=== PATIENT | female | born 1960 | race African-American/Black ===

== ENCOUNTER 2023-08-25 21:23 | Emergency (ER) | payer OTHER, SELFPAY ==
--- OUTSIDE RECORDS SUMMARY | 2023-08-25 21:29 | XMS REPORT | Continuity of Care Document ---
Author Name Unknown Address [address] [facility] [address] [place] [address] [facility] Address [address] [facility] [place] [address] Care Team Providers Care Business Education Professor Name Role Phone ABIGAIL PHILLIP Primary Care Physician Unavaila Abigail Beatty Attending Clinician Unavailable Sravanthi Meléndez Attending Clinician Unavailable TEQUILA CALDWELL Attending Clinician Unavailable TEQUILA CALDWELL Attending Clinician Unavailable GINGER MONTENEGRO Attending Clinician Unavailabl e Lab, Ang - Db Attending Clinician Unavailable Doctor Unassigned, [place] Attending Clinician U navailAntonietta Long MA Attending Clinician Unavailabl Mahsa Yan Attending Clinician Unavailable Celia De La Rosa RN Attending Clinician Unav ailEugenia Garrison MD Attending Clinician EUGENIA ALVARES Attending Clinician Unavailable SUDHEER NAIDU Attending Clinician Unavailable Bin Aguero MD Attending Clinician [phone] BIN AGUERO Attending Clinician Unavailable TEQUILA CALDWELL Admitting Clinician Unavailable Payers Payer Name Policy Type Policy Number Effective Date Expirati on Date Source HIM [facility] [id number] 2022 [id number] 2019 00:[facility] MEDICAID [place] [id number] 2018 00:00:00 [facility] MEDICAID [place] [id number] 2018 00:00:00 [facility] MEDICAID [place] [id number] 2018 00:00:00 [facility] MEDICAID [place] [id number] 2018 00:00:00 [facility] Problems Condition Name Condition Details Condition Category Status Onset Date Resolution Date Last Treatment Date Treating Clinician Comments Source Obesity (BMI 30-39.9) Obesity (BMI 30-39.9) Disease Active 2021-03 00:00: 00 [facility] hyperthyro idism [facility] hyper[facility]ro idism Disease Active 12-23 00:00: 00 [facility] Thyroid nodule Thyroid nodule Disease Active 12-23 00:00: 00 [facility] Mass of left forearm Mass of left forearm Disease Active 2018-03 00:00: 00 Overview: Formattin g of this note might be different from the original. Added automatic ally from request for surgery [id number] [facility] Mass of anterior abdominal wall Mass of anterior abdominal wall Disease Active 2018-03 00:00: 00 Overview: Formattin g of this note might be different from the original. Added automatic ally from request for surgery [id number] [facility] [id number] Alcohol abuse Problem [facility] Cataract Cataract Problem [facility] [id number] Essential hypertensi on Problem [facility] [id number] Other chronic pain Problem [facility] [id number] Uncontroll ed type 2 diabetes mellitus with hyperglyce hari Problem [facility] Vitamin D deficiency Vitamin D deficiency Problem [facility] [id number] Lymphocyto sis Problem [facility] [id number] Hyperthyro idism Problem [facility] Allergies, Adverse Reactions, Alerts Allergy Name Allergy Type Status Severity Reaction(s) Onset Date Inactive Date Treating Clinician Comments Source NO KNOWN ALLERGIE S Drug Class Active [facility] Social History Social Habit Start Date Stop Date Quantity Comments Source History SDOH Alcohol Comment [place] [facility] Gender identity [facility] of Tobacco Use Current Smoker [facility] Sex Assigned At [facility] Exposure to SARS-CoV-2 (event) 2022-06-21 00:00:00 2022-07-01 08:41:00 Not sure [facility] Alcohol intake 2020-03-27 00:00:00 2020-03-27 00:00:00 .29 /d [facility] History of Social function 2019-11-03 00:00:00 2019-11-03 00:00:00 [facility] History SDOH Alcohol Frequency 2019-03-05 00:00:00 2019-03-05 00:00:00 2 [facility] History SDOH Alcohol Std Drinks 2019-03-05 00:00:00 2019-03-05 00:00:00 2 [facility] History SDOH Alcohol Binge 2019-03-05 00:00:00 2019-03-05 00:00:00 1 [facility] Cigarettes smoked current (pack per day) - Reported 2019-03-05 00:00:00 2019-03-05 00:00:00 [facility] Tobacco use and exposure 2019-03-05 00:00:00 2019-03-05 00:00:00 Smokeless tobacco non-user [facility] Smoking Status Start Date Stop Date Source Current Smoker 2023-08-01 00:00:00 [facility] Former Smoker 2023-04-03 00:00:00 2023-04-03 00:00:00 [facility] Medications Ordered Medication Name Filled Medication Name Start Date Stop Date Current Medication? Ordering Clinician Indication Dosage Frequency Signature (SIG) Comments Components Source Amoxicillin -Pot Clavulanate 875-125 MG Amoxicillin -Pot Clavulanate 875-125 MG 2023-0 -03 00:00: 00 No 1{table t} BID Amoxicilli n-Pot Clavulanat e 875-125 MG cloNIDine HCl 0.1 MG cloNIDine HCl 0.1 MG 07-31 00:00: 00 No BID cloNIDine HCl 0.1 MG Ozempic (1 MG/DOSE) 4 MG/3ML Ozempic (1 MG/DOSE) 4 MG/3ML 07-02 00:00: 00 No Ozempic (1 MG/DOSE) 4 MG/3ML Trulicity 1.5 MG/0.5ML Trulicity 1.5 MG/0.5ML 2022-03 00:00: 00 No Trulicity 1.5 MG/0.5ML Trulicity 1.5 MG/0.5ML Trulicity 1.5 MG/0.5ML 2022-03 00:00: 00 No Trulicity 1.5 MG/0.5ML Trulicity 1.5 MG/0.5ML Trulicity 1.5 MG/0.5ML 2022-03 00:00: 00 No Trulicity 1.5 MG/0.5ML Trulicity 1.5 MG/0.5ML Trulicity 1.5 MG/0.5ML 2022-03 00:00: 00 No Trulicity 1.5 MG/0.5ML Trulicity 1.5 MG/0.5ML Trulicity 1.5 MG/0.5ML 2022-03 00:00: 00 No Trulicity 1.5 MG/0.5ML Trulicity 1.5 MG/0.5ML Trulicity 1.5 MG/0.5ML 2022-03 00:00: 00 No Trulicity 1.5 MG/0.5ML Trulicity 1.5 MG/0.5ML Trulicity 1.5 MG/0.5ML 2022-03 00:00: 00 No Trulicity 1.5 MG/0.5ML Trulicity 1.5 MG/0.5ML Trulicity 1.5 MG/0.5ML 2022-03 00:00: 00 No Trulicity 1.5 MG/0.5ML Trulicity 1.5 MG/0.5ML Trulicity 1.5 MG/0.5ML 2022-03 00:00: 00 No Trulicity 1.5 MG/0.5ML Trulicity 1.5 MG/0.5ML Trulicity 1.5 MG/0.5ML 2022-03 00:00: 00 No Trulicity 1.5 MG/0.5ML Trulicity 1.5 MG/0.5ML Trulicity 1.5 MG/0.5ML 2022-03 00:00: 00 No Trulicity 1.5 MG/0.5ML Trulicity 1.5 MG/0.5ML Trulicity 1.5 MG/0.5ML 2022-03 00:00: 00 No Trulicity 1.5 MG/0.5ML Trulicity 1.5 MG/0.5ML Trulicity 1.5 MG/0.5ML 2022-03 00:00: 00 No Trulicity 1.5 MG/0.5ML methIMAzole 5 mg tablet 07-01 00:00: 00 Yes [id number] 7.5mg Take 1.5 tablets by mouth in the morning. [facility] methIMAzole 5 mg tablet 2021-03 2-14 00:00: 00 07-01 00:00 :00 No [id number] 7.5mg Take 1.5 tablets by mouth in the morning. [facility] lidocaine 1% (PF) (XYLOCAINE) injection 2021-03 17:56: 28 01-28 17:56 :28 No PRN, Starting on Fri01/28/22 at 1256, Until Discontinu ed, Routine [facility] methIMAzole 5 mg tablet 2021-03 0-12 00:00: 00 03-13 00:00 :00 No [id number] 5mg Take 1 tablet by mouth in the morning. [facility] methIMAzole 5 mg tablet 4-15 00:00: 00 01-09 00:00 :00 No [id number] 2.5mg Take 0.5 tablets by mouth daily. [facility] methIMAzole 5 mg tablet 07-12 00:00: 00 07-13 00:00 :00 No [id number] 2.5mg Take 0.5 tablets by mouth daily. [facility] Penicillin V Potassium 500 MG Penicillin V Potassium 500 MG - 00:00: 00 07-12 00:00 :00 No 1{table t} BID Penicillin V Potassium 500 MG sodium iodide I 123 oral capsule 200 microcurie 06-28 16:30: 00 06-28 15:22 :00 No [id number] 200uCi 200 microcurie , Oral, ONCE, 1 dose, On [facility] 06/28/21 at 1130, Routine [facility] Vitamin D3 250 MCG (07242 UT) Vitamin D3 250 MCG (26671 UT) 10-19 00:00: 00 01-17 00:00 :00 No 1{capsu le} QD Vitamin D3 250 MCG (26317 UT) Vitamin D3 250 MCG (03529 UT) Vitamin D3 250 MCG (99990 UT) 10-19 00:00: 00 01-17 00:00 :00 No 1{capsu le} QD Vitamin D3 250 MCG (55430 UT) azithromyci n 250 mg tablet 2019-03 00:00: 00 Yes [id number] 250mg Take 1 tablet by mouth daily. Take 500 mg day 1, then 250 mg days 2 to 5. [facility] benzonatate (TESSALON PERLES) 100 mg capsule 2019-03 00:00: 00 Yes [id number] 100mg Take 1 capsule by mouth 3 (three) times daily as needed for Cough. [facility] Vitamin D (Ergocalcif dominick) Vitamin D (Ergocalcif dominick) 12-12 00:00: 00 03-12 00:00 :00 No Sravanthi Millender 1 capsule [facility] Amlodipine Besylate Amlodipine Besylate 04-13 00:00: 00 Yes Sravanthi Millender 1 tablet [facility] aspirin 325 mg tablet 2018-03 14:20: 01 Yes 325mg Take 325 mg by mouth daily. [facility] traMADol 50 mg tablet 2018-03 00:00: 00 Yes [id number] 50mg Take 1 tablet by mouth every 6 (six) hours as needed for Pain (scale 4-6) or Pain (scale 7-10). [facility] acetaminoph en 500 mg tablet 2018-03 00:00: 00 Yes [id number] 500mg Take 1 tablet by mouth every 6 (six) hours as needed for Pain. [facility] ibuprofen 600 mg tablet 2018-03 00:00: 00 Yes [id number] 600mg Take 1 tablet by mouth every 6 (six) hours as needed for Pain (scale 4-6). [facility] Blood Glucose Test Strip Blood Glucose Test Strip 2018-03 00:00: 00 Yes Sravanthi Millender as directed (DISPENSE BLOOD GLUCOSE TEST STRIPS FORMULARY TO INSURANCE) [facility] Lancets Lancets 2018-03 00:00: 00 Yes Sravanthi Millender as directed (dispense lancets formulary to insurance) [facility] Blood Glucose Monitor Blood Glucose Monitor 2018-03 00:00: 00 Yes Sravanthi Millender as directed (DISPENSE BLOOD GLUCOSE MONITOR FORMULARY TO INSURANCE) [facility] Aspirin Adult 81 MG Aspirin Adult 81 MG 2018-03 015 00:00: 00 No QD Aspirin Adult 81 MG Lancets - Lancets - 2018-03 015 00:00: 00 No Lancets - Lancets - Lancets - 2018-0315 00:00: 00 No Lancets - Metformin HCl Metformin HCl Yes Sravanthi Millender 1 tablet with a meal [facility] Lisinopril Lisinopril Yes Sravanthi Millender 1 tablet [facility] Meloxicam Meloxicam Yes Sravanthi Millender 1 tablet [facility] Glimepiride Glimepiride Yes Sravanthi Millender 1 tablet [facility] Aspirin Adult Aspirin Adult Yes Sravanthi Millender (otc)1 tablet [facility] Lisinopril 30 MG Lisinopril 30 MG No 1{table t} QD Lisinopril 30 MG metFORMIN HCl 500 MG metFORMIN HCl 500 MG No 1{table t_with_ a_meal} BID metFORMIN HCl 500 MG Glimepiride 2 MG Glimepiride 2 MG No 1{table t} BID Glimepirid e 2 MG amLODIPine Besylate 10 MG amLODIPine Besylate 10 MG No 1{table t} QD amLODIPine Besylate 10 MG Aspirin Adult 81 MG Aspirin Adult 81 MG No QD Aspirin Adult 81 MG Glimepiride 2 MG Glimepiride 2 MG No 1{table t} BID Glimepirid e 2 MG Lisinopril 30 MG Lisinopril 30 MG No 1{table t} QD Lisinopril 30 MG metFORMIN HCl 500 MG metFORMIN HCl 500 MG No 1{table t_with_ a_meal} BID metFORMIN HCl 500 MG amLODIPine Besylate 10 MG amLODIPine Besylate 10 MG No 1{table t} amLODIPine Besylate 10 MG metFORMIN HCl 1000 MG metFORMIN HCl 1000 MG No 1{table t_with_ a_meal} BID metFORMIN HCl 1000 MG amLODIPine Besylate 10 MG amLODIPine Besylate 10 MG No 1{table t} amLODIPine Besylate 10 MG Lisinopril 30 MG Lisinopril 30 MG No Lisinopril 30 MG Glimepiride 2 MG Glimepiride 2 MG No 1{table t} BID Glimepirid e 2 MG Aspirin Adult 81 MG Aspirin Adult 81 MG No QD Aspirin Adult 81 MG amLODIPine Besylate 10 MG amLODIPine Besylate 10 MG No 1{table t} QD amLODIPine Besylate 10 MG metFORMIN HCl 1000 MG metFORMIN HCl 1000 MG No 1{table t_with_ a_meal} BID metFORMIN HCl 1000 MG methIMAzole 5 MG methIMAzole 5 MG No 1{table t} QD methIMAzol e 5 MG [facility] Blood Glucose Monito w/Device [facility] Blood Glucose Monito w/Device No [facility] Blood Glucose Monito w/Device Aspirin Adult 81 MG Aspirin Adult 81 MG No QD Aspirin Adult 81 MG Glimepiride 2 MG Glimepiride 2 MG No 1{table t_with_ breakfa st_or_t he_firs t_main_ meal_of _the_da y} Glimepirid e 2 MG Lisinopril 30 MG Lisinopril 30 MG No Lisinopril 30 MG amLODIPine Besylate 10 MG amLODIPine Besylate 10 MG No 1{table t} QD amLODIPine Besylate 10 MG metFORMIN HCl 1000 MG metFORMIN HCl 1000 MG No 1{table t_with_ a_meal} BID metFORMIN HCl 1000 MG methIMAzole 5 MG methIMAzole 5 MG No 1{table t} QD methIMAzol e 5 MG [facility] Blood Glucose Monito w/Device [facility] Blood Glucose Monito w/Device No [facility] Blood Glucose Monito w/Device Aspirin Adult 81 MG Aspirin Adult 81 MG No QD Aspirin Adult 81 MG Glimepiride 2 MG Glimepiride 2 MG No 1{table t_with_ breakfa st_or_t he_firs t_main_ meal_of _the_da y} Glimepirid e 2 MG Lisinopril 30 MG Lisinopril 30 MG No Lisinopril 30 MG amLODIPine Besylate 10 MG amLODIPine Besylate 10 MG No 1{table t} QD amLODIPine Besylate 10 MG Aspirin Adult 81 MG Aspirin Adult 81 MG No QD Aspirin Adult 81 MG methIMAzole 5 MG methIMAzole 5 MG No 1{table t} QD methIMAzol e 5 MG metFORMIN HCl 500 MG metFORMIN HCl 500 MG No metFORMIN HCl 500 MG Glimepiride 2 MG Glimepiride 2 MG No 1{table t_with_ breakfa st_or_t he_firs t_main_ meal_of _the_da y} Glimepirid e 2 MG Lisinopril 30 MG Lisinopril 30 MG No Lisinopril 30 MG [facility] Blood Glucose Monito w/Device [facility] Blood Glucose Monito w/Device No [facility] Blood Glucose Monito w/Device amLODIPine Besylate 10 MG amLODIPine Besylate 10 MG No 1{table t} QD amLODIPine Besylate 10 MG Aspirin Adult 81 MG Aspirin Adult 81 MG No QD Aspirin Adult 81 MG methIMAzole 5 MG methIMAzole 5 MG No 1{table t} QD methIMAzol e 5 MG metFORMIN HCl 500 MG metFORMIN HCl 500 MG No metFORMIN HCl 500 MG Glimepiride 2 MG Glimepiride 2 MG No 1{table t_with_ breakfa st_or_t he_firs t_main_ meal_of _the_da y} Glimepirid e 2 MG Lisinopril 30 MG Lisinopril 30 MG No Lisinopril 30 MG [facility] Blood Glucose Monito w/Device [facility] Blood Glucose Monito w/Device No [facility] Blood Glucose Monito w/Device amLODIPine Besylate 10 MG amLODIPine Besylate 10 MG No 1{table t} QD amLODIPine Besylate 10 MG Aspirin Adult 81 MG Aspirin Adult 81 MG No QD Aspirin Adult 81 MG methIMAzole 5 MG methIMAzole 5 MG No 1{table t} QD methIMAzol e 5 MG metFORMIN HCl 500 MG metFORMIN HCl 500 MG No metFORMIN HCl 500 MG Glimepiride 2 MG Glimepiride 2 MG No 1{table t_with_ breakfa st_or_t he_firs t_main_ meal_of _the_da y} Glimepirid e 2 MG Lisinopril 30 MG Lisinopril 30 MG No Lisinopril 30 MG [facility] Blood Glucose Monito w/Device [facility] Blood Glucose Monito w/Device No [facility] Blood Glucose Monito w/Device amLODIPine Besylate 10 MG amLODIPine Besylate 10 MG No 1{table t} QD amLODIPine Besylate 10 MG Aspirin Adult 81 MG Aspirin Adult 81 MG No QD Aspirin Adult 81 MG methIMAzole 5 MG methIMAzole 5 MG No 1{table t} QD methIMAzol e 5 MG metFORMIN HCl 500 MG metFORMIN HCl 500 MG No metFORMIN HCl 500 MG Glimepiride 2 MG Glimepiride 2 MG No 1{table t_with_ breakfa st_or_t he_firs t_main_ meal_of _the_da y} Glimepirid e 2 MG Lisinopril 30 MG Lisinopril 30 MG No Lisinopril 30 MG [facility] Blood Glucose Monito w/Device [facility] Blood Glucose Monito w/Device No [facility] Blood Glucose Monito w/Device amLODIPine Besylate 10 MG amLODIPine Besylate 10 MG No 1{table t} QD amLODIPine Besylate 10 MG Aspirin Adult 81 MG Aspirin Adult 81 MG No QD Aspirin Adult 81 MG methIMAzole 5 MG methIMAzole 5 MG No 1{table t} QD methIMAzol e 5 MG metFORMIN HCl 500 MG metFORMIN HCl 500 MG No metFORMIN HCl 500 MG Glimepiride 2 MG Glimepiride 2 MG No 1{table t_with_ breakfa st_or_t he_firs t_main_ meal_of _the_da y} Glimepirid e 2 MG Lisinopril 30 MG Lisinopril 30 MG No Lisinopril 30 MG [facility] Blood Glucose Monito w/Device [facility] Blood Glucose Monito w/Device No [facility] Blood Glucose Monito w/Device Glimepiride 2 MG Glimepiride 2 MG No 1{table t_with_ break st_or_t he_firs t_main_ meal_of _the_da y} Glimepirid e 2 MG Lisinopril 30 MG Lisinopril 30 MG No Lisinopril 30 MG Aspirin Adult 81 MG Aspirin Adult 81 MG No QD Aspirin Adult 81 MG amLODIPine Besylate 10 MG amLODIPine Besylate 10 MG No amLODIPine Besylate 10 MG metFORMIN HCl 500 MG metFORMIN HCl 500 MG No metFORMIN HCl 500 MG [facility] Blood Glucose Monito w/Device [facility] Blood Glucose Monito w/Device No [facility] Blood Glucose [place] w/Device methIMAzole 5 MG methIMAzole 5 MG No 1{table t} QD methIMAzol e 5 MG Glimepiride 2 MG Glimepiride 2 MG No 1{table t_with_ break st_or_t he_firs t_main_ meal_of _theda y} Glimepirid e 2 MG Lisinopril 30 MG Lisinopril 30 MG No Lisinopril 30 MG Aspirin Adult 81 MG Aspirin Adult 81 MG No QD Aspirin Adult 81 MG amLODIPine Besylate 10 MG amLODIPine Besylate 10 MG No amLODIPine Besylate 10 MG metFORMIN HCl 500 MG metFORMIN HCl 500 MG No metFORMIN HCl 500 MG [facility] Blood Glucose Monito w/Device [facility] Blood Glucose Monito w/Device No [facility] Blood Glucose Monito w/Device methIMAzole 5 MG methIMAzole 5 MG No 1{table t} QD methIMAzol e 5 MG Glimepiride 2 MG Glimepiride 2 MG No 1{table t_with_ breakfa st_or_t he_firs t_main_ meal_of _the_da y} Glimepirid e 2 MG Lisinopril 30 MG Lisinopril 30 MG No Lisinopril 30 MG Aspirin Adult 81 MG Aspirin Adult 81 MG No QD Aspirin Adult 81 MG amLODIPine Besylate 10 MG amLODIPine Besylate 10 MG No amLODIPine Besylate 10 MG metFORMIN HCl 500 MG metFORMIN HCl 500 MG No metFORMIN HCl 500 MG [facility] Blood Glucose Monito w/Device [facility] Blood Glucose Monito w/Device No [facility] Blood Glucose Monito w/Device methIMAzole 5 MG methIMAzole 5 MG No 1{table t} QD methIMAzol e 5 MG Glimepiride 2 MG Glimepiride 2 MG No 1{table t_with_ breakfa st_or_t he_firs t_main_ meal_of _the_da y} Glimepirid e 2 MG Lisinopril 30 MG Lisinopril 30 MG No Lisinopril 30 MG Aspirin Adult 81 MG Aspirin Adult 81 MG No QD Aspirin Adult 81 MG amLODIPine Besylate 10 MG amLODIPine Besylate 10 MG No amLODIPine Besylate 10 MG metFORMIN HCl 500 MG metFORMIN HCl 500 MG No metFORMIN HCl 500 MG [facility] Blood Glucose Mon[place] w/Device [facility] Blood Glucose Monito w/Device No [facility] Blood Glucose Monito w/Device methIMAzole 5 MG methIMAzole 5 MG No 1{table t} QD methIMAzol e 5 MG Glimepiride 2 MG Glimepiride 2 MG No 1{table t_with_ breakfa st_or_t he_firs t_main_ meal_of _the_da y} Glimepirid e 2 MG Lisinopril 30 MG Lisinopril 30 MG No Lisinopril 30 MG Aspirin Adult 81 MG Aspirin Adult 81 MG No QD Aspirin Adult 81 MG amLODIPine Besylate 10 MG amLODIPine Besylate 10 MG No amLODIPine Besylate 10 MG metFORMIN HCl 500 MG metFORMIN HCl 500 MG No metFORMIN HCl 500 MG [facility] Blood Glucose Mon[place] w/Device [facility] Blood Glucose Monito w/Device No [facility] Blood Glucose [place] w/Device methIMAzole 5 MG methIMAzole 5 MG No 1{table t} QD methIMAzol e 5 MG Glimepiride 2 MG Glimepiride 2 MG No 1{table t_with_ breakfa st_or_t he_firs t_main_ meal_of _the_da y} Glimepirid e 2 MG Lisinopril 30 MG Lisinopril 30 MG No Lisinopril 30 MG Aspirin Adult 81 MG Aspirin Adult 81 MG No QD Aspirin Adult 81 MG amLODIPine Besylate 10 MG amLODIPine Besylate 10 MG No amLODIPine Besylate 10 MG metFORMIN HCl 500 MG metFORMIN HCl 500 MG No metFORMIN HCl 500 MG [facility] Blood Glucose Mon[place] w/Device [facility] Blood Glucose Monito w/Device No [facility] Blood Glucose [place] w/Device methIMAzole 5 MG methIMAzole 5 MG No 1{table t} QD methIMAzol e 5 MG metFORMIN HCl 500 MG metFORMIN HCl 500 MG No 1{table t_with_ a_meal} BID metFORMIN HCl 500 MG Aspirin Adult 81 MG Aspirin Adult 81 MG No QD Aspirin Adult 81 MG Glimepiride 2 MG Glimepiride 2 MG No Glimepirid e 2 MG [facility] Blood Glucose Mon[place] w/Device [facility] Blood Glucose Monito w/Device No [facility] Blood Glucose Monito w/Device methIMAzole 5 MG methIMAzole 5 MG No 1{table t} QD methIMAzol e 5 MG Lisinopril 40 MG Lisinopril 40 MG No 1{table t} QD Lisinopril 40 MG amLODIPine Besylate 10 MG amLODIPine Besylate 10 MG No 1{table t} QD amLODIPine Besylate 10 MG Aspirin Adult 81 MG Aspirin Adult 81 MG No QD Aspirin Adult 81 MG metFORMIN HCl 500 MG metFORMIN HCl 500 MG No 1{table t_with_ a_meal} BID metFORMIN HCl 500 MG Lisinopril 30 MG Lisinopril 30 MG No 1{table t} QD Lisinopril 30 MG amLODIPine Besylate 10 MG amLODIPine Besylate 10 MG No 1{table t} amLODIPine Besylate 10 MG Glimepiride 2 MG Glimepiride 2 MG No 1{table t} BID Glimepirid e 2 MG Immunizations Ordered Immunization Name Filled Immunization Name Date Status Comments Source Moderna COVID-19 Vaccine Moderna COVID-19 Vaccine 2020-08-21 14:00:00 Completed [facility] Moderna COVID-19 Vaccine Moderna COVID-19 Vaccine 2020-08-21 14:00:00 Completed [facility] Moderna COVID-19 Vaccine Moderna COVID-19 Vaccine 2020-08-21 14:00:00 Completed [facility] Moderna COVID-19 Vaccine Moderna COVID-19 Vaccine 2020-08-21 14:00:00 Completed [facility] Moderna COVID-19 Vaccine Moderna COVID-19 Vaccine 2020-08-21 14:00:00 Completed [facility] Moderna COVID-19 Vaccine Moderna COVID-19 Vaccine 2020-08-21 14:00:00 Completed [facility] Moderna COVID-19 Vaccine Moderna COVID-19 Vaccine 2020-08-21 14:00:00 Completed [facility] Moderna COVID-19 Vaccine Moderna COVID-19 Vaccine 2020-08-21 14:00:00 Completed [facility] Moderna COVID-19 Vaccine Moderna COVID-19 Vaccine 2020-08-21 14:00:00 Completed [facility] Moderna COVID-19 Vaccine Moderna COVID-19 Vaccine 2020-08-21 14:00:00 Completed [facility] Moderna COVID-19 Vaccine Moderna COVID-19 Vaccine 2020-08-21 14:00:00 Completed [facility] SARS-COV-2 COVID-19 VACCINE - (MODERNA) 2020-08-21 00:00:00 Completed [facility] SARS-COV-2 COVID-19 VACCINE - (MODERNA) 2020-08-21 00:00:00 Completed [facility] SARS-COV-2 COVID-19 VACCINE - (MODERNA) 2020-08-21 00:00:00 Completed [facility] SARS-COV-2 COVID-19 VACCINE - (MODERNA) 2020-08-21 00:00:00 Completed [facility] SARS-COV-2 COVID-19 VACCINE - (MODERNA) 2020-08-21 00:00:00 Completed [facility] SARS-COV-2 COVID-19 VACCINE - (MODERNA) 2020-08-21 00:00:00 Completed [facility] SARS-COV-2 COVID-19 VACCINE - (MODERNA) 2020-08-21 00:00:00 Completed [facility] SARS-COV-2 COVID-19 VACCINE - (MODERNA) 2020-08-21 00:00:00 Completed [facility] SARS-COV-2 COVID-19 VACCINE - (MODERNA) 2020-08-21 00:00:00 Completed [facility] Moderna COVID-19 Vaccine Moderna COVID-19 Vaccine 2020-07-18 13:59:00 Completed [facility] Moderna COVID-19 Vaccine Moderna COVID-19 Vaccine 2020-07-18 13:59:00 Completed [facility] Moderna COVID-19 Vaccine Moderna COVID-19 Vaccine 2020-07-18 13:59:00 Completed [facility] Moderna COVID-19 Vaccine Moderna COVID-19 Vaccine 2020-07-18 13:59:00 Completed [facility] Moderna COVID-19 Vaccine Moderna COVID-19 Vaccine 2020-07-18 13:59:00 Completed [facility] Moderna COVID-19 Vaccine Moderna COVID-19 Vaccine 2020-07-18 13:59:00 Completed [facility] Moderna COVID-19 Vaccine Moderna COVID-19 Vaccine 2020-07-18 13:59:00 Completed [facility] Moderna COVID-19 Vaccine Moderna COVID-19 Vaccine 2020-07-18 13:59:00 Completed [facility] Moderna COVID-19 Vaccine Moderna COVID-19 Vaccine 2020-07-18 13:59:00 Completed [facility] Moderna COVID-19 Vaccine Moderna COVID-19 Vaccine 2020-07-18 13:59:00 Completed [facility] Moderna COVID-19 Vaccine Moderna COVID-19 Vaccine 2020-07-18 13:59:00 Completed [facility] SARS-COV-2 COVID-19 VACCINE - (MODERNA) 2020-07-18 00:00:00 Completed [facility] SARS-COV-2 COVID-19 VACCINE - (MODERNA) 2020-07-18 00:00:00 Completed [facility] SARS-COV-2 COVID-19 VACCINE - (MODERNA) 2020-07-18 00:00:00 Completed [facility] SARS-COV-2 COVID-19 VACCINE - (MODERNA) 2020-07-18 00:00:00 Completed [facility] SARS-COV-2 COVID-19 VACCINE - (MODERNA) 2020-07-18 00:00:00 Completed [facility] SARS-COV-2 COVID-19 VACCINE - (MODERNA) 2020-07-18 00:00:00 Completed [facility] SARS-COV-2 COVID-19 VACCINE - (MODERNA) 2020-07-18 00:00:00 Completed [facility] SARS-COV-2 COVID-19 VACCINE - (MODERNA) 2020-07-18 00:00:00 Completed [facility] SARS-COV-2 COVID-19 VACCINE - (MODERNA) 2020-07-18 00:00:00 Completed [facility] Moderna COVID-19 Vaccine Moderna COVID-19 Vaccine Unknown Completed [facility] Moderna COVID-19 Vaccine Moderna COVID-19 Vaccine Unknown Completed [facility] Moderna COVID-19 Vaccine Moderna COVID-19 Vaccine Unknown Completed [facility] Moderna COVID-19 Vaccine Moderna COVID-19 Vaccine Unknown Completed [facility] Moderna COVID-19 Vaccine Moderna COVID-19 Vaccine Unknown Completed [facility] Moderna COVID-19 Vaccine Moderna COVID-19 Vaccine Unknown Completed [facility] Moderna COVID-19 Vaccine Moderna COVID-19 Vaccine Unknown Completed [facility] Moderna COVID-19 Vaccine Moderna COVID-19 Vaccine Unknown Completed [facility] Moderna COVID-19 Vaccine Moderna COVID-19 Vaccine Unknown Completed [facility] Moderna COVID-19 Vaccine Moderna COVID-19 Vaccine Unknown Completed [facility] Moderna COVID-19 Vaccine Moderna COVID-19 Vaccine Unknown Completed [facility] Moderna COVID-19 Vaccine Moderna COVID-19 Vaccine Unknown Completed [facility] Moderna COVID-19 Vaccine Moderna COVID-19 Vaccine Unknown Completed [facility] Moderna COVID-19 Vaccine Moderna COVID-19 Vaccine Unknown Completed [facility] Moderna COVID-19 Vaccine Moderna COVID-19 Vaccine Unknown Completed [facility] Moderna COVID-19 Vaccine Moderna COVID-19 Vaccine Unknown Completed [facility] Moderna COVID-19 Vaccine Moderna COVID-19 Vaccine Unknown Completed [facility] Moderna COVID-19 Vaccine Moderna COVID-19 Vaccine Unknown Completed [facility] Moderna COVID-19 Vaccine Moderna COVID-19 Vaccine Unknown Completed [facility] Moderna COVID-19 Vaccine Moderna COVID-19 Vaccine Unknown Completed [facility] Moderna COVID-19 Vaccine Moderna COVID-19 Vaccine Unknown Completed [facility] Moderna COVID-19 Vaccine Moderna COVID-19 Vaccine Unknown Completed [facility] Moderna COVID-19 Vaccine Moderna COVID-19 Vaccine Unknown Completed [facility] Moderna COVID-19 Vaccine Moderna COVID-19 Vaccine Unknown Completed [facility] Moderna COVID-19 Vaccine Moderna COVID-19 Vaccine Unknown Completed [facility] Moderna COVID-19 Vaccine Moderna COVID-19 Vaccine Unknown Completed [facility] Moderna COVID-19 Vaccine Moderna COVID-19 Vaccine Unknown Completed [facility] Moderna COVID-19 Vaccine Moderna COVID-19 Vaccine Unknown Completed [facility] Moderna COVID-19 Vaccine Moderna COVID-19 Vaccine Unknown Completed [facility] Moderna COVID-19 Vaccine Moderna COVID-19 Vaccine Unknown Completed [facility] Vital Signs Vital Name Observation Time Observation Value Comments S howard height 2023-08-01 08:40:00 71 [in_i] Commo n [facility] weight 2023-08-01 08:40:00 276.6 [lb_av] Co on [facility] temperature 2023-08-01 08:40:00 97.3 [degF] Com [facility] bmi 2023-08-01 08:40:00 38.57 kg/m2 Comm on [facility] oximetry 2023-08-01 08:40:00 99 % Commo n [facility] respiratory rate 2023-08-01 08:40:00 18 /min [facility] blood pressure systolic 2023-08-01 08:40:00 141 mm[Hg] Common [facility] blood pressure diastolic 2023-08-01 08:40:00 88 mm[Hg] Common [facility] height 2023-07-03 10:20:00 71 [in_i] Commo n [facility] weight 2023-07-03 10:20:00 286.6 [lb_av] Co [facility] temperature 2023-07-03 10:20:00 97.6 [degF] Com [facility] bmi 2023-07-03 10:20:00 39.97 kg/m2 Comm on [facility] oximetry 2023-07-03 10:20:00 98 % Commo n [facility] respiratory rate 2023-07-03 10:20:00 16 /min Common [facility] blood pressure systolic 2023-07-03 10:20:00 152 mm[Hg] [facility] blood pressure diastolic 2023-07-03 10:20:00 79 mm[Hg] Common [facility] height 2023-04-03 10:00:00 71 [in_i] Commo n [facility] weight 2023-04-03 10:00:00 274.6 [lb_av] Co mmon [facility] temperature 2023-04-03 10:00:00 97.4 [degF] Com [facility] bmi 2023-04-03 10:00:00 38.29 kg/m2 Comm on [facility] oximetry 2023-04-03 10:00:00 97 % Commo n [facility] respiratory rate 2023-04-03 10:00:00 16 /min [facility] blood pressure systolic 2023-04-03 10:00:00 139 mm[Hg] [facility] blood pressure diastolic 2023-04-03 10:00:00 80 mm[Hg] [facility] height 2023-01-31 10:20:00 71 [in_i] Commo n [facility] weight 2023-01-31 10:20:00 291.8 [lb_av] Co mmon [facility] temperature 2023-01-31 10:20:00 97.8 [degF] Com [facility] bmi 2023-01-31 10:20:00 40.69 kg/m2 Comm on [facility] oximetry 2023-01-31 10:20:00 97 % Commo n [facility] respiratory rate 2023-01-31 10:20:00 16 /min Common [facility] height 2022-10-30 15:00:00 71 [in_i] Commo n [facility] weight 2022-10-30 15:00:00 297 [lb_av] Comm on [facility] temperature 2022-10-30 15:00:00 97.9 [degF] Com [facility] bmi 2022-10-30 15:00:00 41.42 kg/m2 Comm on [facility] oximetry 2022-10-30 15:00:00 97 % Commo n [facility] respiratory rate 2022-10-30 15:00:00 16 /min [facility] blood pressure systolic 2022-10-30 15:00:00 134 mm[Hg] Common [facility] blood pressure diastolic 2022-10-30 15:00:00 78 mm[Hg] [facility] height 2022-07-29 08:40:00 71 [in_i] Commo n [facility] weight 2022-07-29 08:40:00 298.0 [lb_av] Co mmon [facility] temperature 2022-07-29 08:40:00 97.3 [degF] Com mon [facility] bmi 2022-07-29 08:40:00 41.56 kg/m2 Comm on [facility] oximetry 2022-07-29 08:40:00 98 % Commo n [facility] respiratory rate 2022-07-29 08:40:00 18 /min [facility] blood pressure systolic 2022-07-29 08:40:00 138 mm[Hg] [facility] blood pressure diastolic 2022-07-29 08:40:00 84 mm[Hg] [facility] Systolic blood pressure 2022-07-01 14:24:00 152 mm[Hg] [facility] Diastolic blood pressure 2022-07-01 14:24:00 81 mm[Hg] [facility] Heart rate 2022-07-01 14:20:00 75 /[facility] 2022-07-01 14:20:[address] [facility] Body weight 2022-07-01 14:20:[address] [facility] BMI 2022-07-01 14:20:00 39.80 kg/m2 [facility] Oxygen saturation in Arterial blood by Pulse oximetry 2022-07-01 14:20:00 98 /min [facility] height 2022-04-29 08:40:00 71 [in_i] Commo n [facility] weight 2022-04-29 08:40:00 297.4 [lb_av] Co mmon [facility] temperature 2022-04-29 08:40:00 97.5 [degF] Com mon [facility] bmi 2022-04-29 08:40:00 41.47 kg/m2 Comm on [facility] oximetry 2022-04-29 08:40:00 97 % Commo n [facility] respiratory rate 2022-04-29 08:40:00 17 /min Common [facility] blood pressure systolic 2022-04-29 08:40:00 134 mm[Hg] [facility] blood pressure diastolic 2022-04-29 08:40:00 76 mm[Hg] [facility] Systolic blood pressure 2022-03-11 14:59:00 136 mm[Hg] [facility] Diastolic blood pressure 2022-03-11 14:59:00 82 mm[Hg] [facility] Heart rate 2022-03-11 14:59:00 77 /min [facility] Body height 2022-03-11 14:59:[address] [facility] Body weight 2022-03-11 14:59:[address] [facility] BMI 2022-03-11 14:59:00 38.62 kg/m2 [facility] Oxygen saturation in Arterial blood by Pulse oximetry 2022-03-11 14:59:00 98 /min [facility] Systolic blood pressure 2022-01-28 17:57:00 168 mm[Hg] [facility] Diastolic blood pressure 2022-01-28 17:57:00 91 mm[Hg] [facility] Heart rate 2022-01-28 17:57:00 83 /min [facility] Oxygen saturation in Arterial blood by Pulse oximetry 2022-01-28 17:57:00 97 /min [facility] Respiratory rate 2022-01-28 16:34:00 16 /min [facility] Body height 2022-01-28 16:34:[address] [facility] Body weight 2022-01-28 16:34:[address] [facility] BMI 2022-01-28 16:34:00 39.18 kg/m2 [facility] height 2022-01-28 08:40:00 71 [in_i] Commo n [facility] weight 2022-01-28 08:40:00 291 [lb_av] Comm on [facility] temperature 2022-01-28 08:40:00 97.7 [degF] Com mon [facility] bmi 2022-01-28 08:40:00 40.58 kg/m2 Comm on [facility] oximetry 2022-01-28 08:40:00 100 % Commo n [facility] respiratory rate 2022-01-28 08:40:00 17 /min [facility] blood pressure systolic 2022-01-28 08:40:00 138 mm[Hg] [facility] blood pressure diastolic 2022-01-28 08:40:00 84 mm[Hg] [facility] Systolic blood pressure 2021-12-10 18:25:00 143 mm[Hg] [facility] Diastolic blood pressure 2021-12-10 18:25:00 84 mm[Hg] [facility] Heart rate 2021-12-10 18:24:00 84 /min [facility] Body weight 2021-12-10 18:24:[address] [facility] BMI 2021-12-10 18:24:00 39.18 kg/m2 [facility] Oxygen saturation in Arterial blood by Pulse oximetry 2021-12-10 18:24:00 96 /min [facility] height 2021-10-02 14:00:00 Commo n [facility] weight 2021-10-02 14:00:00 292 [lb_av] Comm on [facility] temperature 2021-10-02 14:00:00 97.5 [degF] Com [facility] bmi 2021-10-02 14:00:00 40.72 kg/m2 Comm on [facility] oximetry 2021-10-02 14:00:00 96 % Commo n [facility] respiratory rate 2021-10-02 14:00:00 18 /min Common [facility] blood pressure systolic 2021-10-02 14:00:00 126 mm[Hg] [facility] blood pressure diastolic 2021-10-02 14:00:00 84 mm[Hg] [facility] height 2021-07-02 14:00:00 70.50 [in_i] Com [facility] weight 2021-07-02 14:00:00 290 [lb_av] Comm on [facility] temperature 2021-07-02 14:00:00 97.2 [degF] Com [facility] bmi 2021-07-02 14:00:00 41.02 kg/m2 Comm on [facility] oximetry 2021-07-02 14:00:00 96 % Commo n [facility] respiratory rate 2021-07-02 14:00:00 18 /min [facility] blood pressure systolic 2021-07-02 14:00:00 138 mm[Hg] [facility] blood pressure diastolic 2021-07-02 14:00:00 82 mm[Hg] [facility] height 2021-04-27 08:20:00 70.50 [in_i] Com [facility] weight 2021-04-27 08:20:00 292 [lb_av] Comm on [facility] temperature 2021-04-27 08:20:00 97.8 [degF] Com [facility] bmi 2021-04-27 08:20:00 41.3 kg/m2 Commo n [facility] oximetry 2021-04-27 08:20:00 99 % Commo n [facility] respiratory rate 2021-04-27 08:20:00 16 /min [facility] blood pressure systolic 2021-04-27 08:20:00 130 mm[Hg] [facility] blood pressure diastolic 2021-04-27 08:20:00 68 mm[Hg] [facility] height 2021-04-03 13:00:00 70.50 [in_i] Com [facility] weight 2021-04-03 13:00:00 292 [lb_av] Comm on [facility] temperature 2021-04-03 13:00:00 98.1 [degF] Com [facility] bmi 2021-04-03 13:00:00 41.3 kg/m2 Commo n [facility] oximetry 2021-04-03 13:00:00 98 % Commo n [facility] respiratory rate 2021-04-03 13:00:00 16 /min [facility] blood pressure systolic 2021-04-03 13:00:00 132 mm[Hg] [facility] blood pressure diastolic 2021-04-03 13:00:00 64 mm[Hg] [facility] height 2021-01-01 13:00:00 70.50 [in_i] Com [facility] weight 2021-01-01 13:00:00 290 [lb_av] Comm on [facility] temperature 2021-01-01 13:00:00 98.4 [degF] Com [facility] bmi 2021-01-01 13:00:00 41.02 kg/m2 Comm on [facility] oximetry 2021-01-01 13:00:00 98 % Commo n [facility] respiratory rate 2021-01-01 13:00:00 18 /min [facility] blood pressure systolic 2021-01-01 13:00:00 136 mm[Hg] [facility] blood pressure diastolic 2021-01-01 13:00:00 72 mm[Hg] [facility] height 2020-10-03 14:00:00 70.50 [in_i] Com [facility] weight 2020-10-03 14:00:00 293 [lb_av] Comm on [facility] temperature 2020-10-03 14:00:00 98.4 [degF] Com [facility] bmi 2020-10-03 14:00:00 41.44 kg/m2 Comm [facility] oximetry 2020-10-03 14:00:00 96 % Commo n [facility] respiratory rate 2020-10-03 14:00:00 16 /min [facility] blood pressure systolic 2020-10-03 14:00:00 139 mm[Hg] [facility] blood pressure diastolic 2020-10-03 14:00:00 86 mm[Hg] [facility] Procedures Procedure Date / Time Performed Performing Clinician Source ASSIGNMENT OF BENEFITS 2022-07-01 13:42:10 Docto r Unassigned, Hensley [facility] IR BIOPSY THYROID PERCUTANEOUS WITH ULTRASOUND 2022-01-28 18:18:13 Tequila Caldwell [facility] US HEAD NECK 2021-12-29 13:25:00 Tequila Caldwell [facility] NM THYROID UPTAKE AND SCAN 2021-06-29 16:51:00 Eugenia Alvares [facility] NM THYROID UPTAKE AND SCAN 2021-06-29 16:51:00 Eugenia Alvares [facility] Encounters Start Date/Time End Date/Time Encounter Type Admission Type Attending Clinicians Care Facility Care Department Encounter ID Source 2023-07-30 08:02:00 Outpatient [place]Abigail bonilla [facility] [id number] [facility] 2023-07-01 08:35:00 Outpatient [place]Abigail bonilla [facility] [id number] [facility] 2023-04-02 15:00:00 Outpatient [place]Abigail bonilla [facility] [id number] [facility] 2023-01-29 09:55:00 Outpatient [place]Abigail bonilla [facility] [id number] [facility] 2023-01-07 13:59:00 Outpatient [place]Abigail bonilla [facility] [id number] [facility] 2022-09-30 14:23:00 Outpatient Abigail Phillip [facility] [id number] [facility] 2022-04-25 08:33:02 Outpatient [place]Abigail bonilla [facility] [id number] [facility] 2022-01-24 11:19:01 Outpatient Abigail Phillip [facility] [id number] [facility] 2021-06-28 09:23:23 Outpatient Abigail Phillip [facility] [id number] [facility] 2021-05-02 14:37:01 Outpatient [place]ail bonilla [facility] [id number] [facility] 2021-04-25 13:37:15 Outpatient [place]ail bonilla [facility] [id number] [facility] 2021-04-25 13:22:16 Outpatient [place]ail bonilla [facility] [id number] [facility] 2021-04-25 12:48:59 Outpatient [place]Abigail bonilla [facility] [id number] [facility] 2021-04-25 12:39:29 Outpatient Abigail Phillip [facility] [id number] [facility] 2021-04-25 11:45:35 Outpatient Sravanthi Meléndez [facility] [id number] [facility] 2021-04-25 11:45:19 Outpatient Sravanthi Meléndez [facility] [id number] [facility] 2021-04-25 11:00:23 Outpatient Sravanthi Meléndez [facility] [id number] [facility] 2023-08-01 00:00:00 2023-08-01 00:00:00 OFFICE VISIT ESTAB PT LEVEL 4 [facility] [id number] [facility] 2023-07-03 00:00:00 2023-07-03 00:00:00 OFFICE VISIT ESTAB PT LEVEL 4 [facility] [id number] [facility] 2023-04-03 00:00:00 2023-04-03 00:00:00 OFFICE VISIT ESTAB PT LEVEL 3 [facility] [id number] [facility] 2023-03-07 14:30:00 2023-03-07 14:30:00 Outpatient GINGER HELM [facility] [id number] [facility] 2023-03-06 00:00:00 2023-03-06 00:00:00 (TEL) [facility] [id number] [facility] 2023-02-18 00:00:00 2023-02-18 00:00:00 (TEL) [facility] [id number] [facility] 2023-01-31 00:00:00 2023-01-31 00:00:00 OFFICE VISIT ESTAB PT LEVEL 3 [facility] [id number] [facility] 2023-01-27 14:00:00 2023-01-27 14:00:00 Outpatient TEQUILA QIU YU [facility] [id number] [facility] 2023-01-24 00:00:00 2023-01-24 00:00:00 (TEL) [facility]C ST[facility] [id number] [facility] 2022-12-31 00:00:00 2022-12-31 00:00:00 (TEL) [facility]C [facility] [id number] [facility] 2022-12-13 00:00:00 2022-12-13 00:00:00 (TEL) [facility]C [facility] [id number] [facility] 2022-12-13 00:00:00 2022-12-13 00:00:00 Refill Tequila Caldwell [facility] [id number] 350.1.13.10 4.2.7.2.686 [id number] [facility] 2022-12-06 00:00:00 2022-12-06 00:00:00 (TEL) STLMLC ST[facility]C [id number] [facility] 2022-11-04 08:30:00 2022-11-04 08:30:00 Outpatient R TEQUILA CALDWELL Y[facility] [id number] [facility] 2022-10-30 00:00:00 2022-10-30 00:00:00 OFFICE VISIT ESTAB PT LEVEL 3 [facility] [id number] [facility] 2022-10-14 00:00:00 2022-10-14 00:00:00 (TEL) [facility]C [facility] [id number] [facility] 2022-09-23 00:00:00 2022-09-23 00:00:00 (TEL) [facility]C ST[facility] [id number] [facility] 2022-07-29 00:00:00 2022-07-29 00:00:00 OFFICE VISIT ESTAB PT LEVEL 4 [facility] [id number] [facility] 2022-07-03 00:00:00 2022-07-03 00:00:00 (TEL) STLMLC STL[facility]C [id number] [facility] 2022-07-01 10:15:00 2022-07-01 10:30:00 Sales Broker Visit Lab, Thierry - Davidson Cardos[facility]am[facility] [id number] 350.1.13.10 4.2.7.2.686 [id number] [facility] 2022-07-01 09:30:00 2022-07-01 09:48:33 Outpatient R TEQUILA CALDWELL [facility] [id number] [facility] 2022-07-01 09:30:00 2022-07-01 09:48:33 Office Visit Christi [facility] [id number] 350.1.13.10 4.2.7.2.686 [id number] [facility] 2022-07-01 00:00:00 2022-07-01 00:00:00 Orders Only Doctor Unassigned, Hensley [facility] [id number] 350.1.13.10 4.2.7.2.686 [id number] [facility] 2022-07-01 00:00:00 2022-07-01 00:00:00 Telephone Tequila Caldwell [facility] [id number] 350.1.13.10 4.2.7.2.686 [id number] [facility] 2022-04-29 00:00:00 2022-04-29 00:00:00 OFFICE VISIT ESTAB PT LEVEL 4 [facility] ST[facility] [id number] [facility] 2022-03-19 00:00:00 2022-03-19 00:00:00 Case Management BocAntonietta don [id number] 350.1.13.10 4.2.7.2.686 [id number] [facility] 2022-03-13 00:00:00 2022-03-13 00:00:00 Telephone Tequila Caldwell [facility] [id number] 350.1.13.10 4.2.7.2.686 [id number] [facility] 2022-03-11 10:00:00 2022-03-11 10:15:00 Sales Broker Visit Lab, Thierry [facility]ño [facility] [id number] 350.1.13.10 4.2.7.2.686 [id number] [facility] 2022-03-11 09:30:00 2022-03-11 09:30:00 Office Visit Christi [facility] GISSEL?AN[facility] 1.2840.114 350.1.13.10 4.2.7.2.686 [id number] [facility] 2022-03-11 09:30:00 2022-03-11 09:24:49 Outpatient R TEQUILA CALDWELL [facility] [id number] [facility] 2022-02-03 00:00:00 2022-02-03 00:00:00 Telephone Christi [facility] GISSEL?[facility] 1.2.84.114 350.1.13.10 4.2.7.2.686 [id number] [facility] 2022-01-28 12:00:00 2022-01-28 23:59:00 Outpatient R TEQUILA CALDWELL [facility] [id number] [facility] 2022-01-28 10:29:26 2022-01-28 23:59:00 Hospital Encounter Tequila Caldwell Mahsa Carey Jennifer S[facility] 1.2840.114 350.1.13.10 4.2.7.2.686 [id number] [facility] 2022-01-28 00:00:00 2022-01-28 00:00:00 OFFICE VISIT EST PT LEVEL 3 [facility]C ST[facility] [id number] [facility] 2022-01-09 00:00:00 2022-01-09 00:00:00 Telephone Christi [facility] 1.2840.114 350.1.13.10 4.2.7.2.686 [id number] [facility] 2021-12-29 07:57:26 2021-12-29 23:59:00 Outpatient R TEQUILA CALDWELL, [facility] [id number] [facility] 2021-12-29 07:57:26 2021-12-29 23:59:00 Hospital Encounter Tequila Caldwell [facility] 1.2840.114 350.1.13.10 4.2.7.2.686 [id number] [facility] 2021-12-26 00:00:00 2021-12-26 00:00:00 Telephone Christi [facility] 1.2840.114 350.1.13.10 4.2.7.2.686 [id number] [facility] 2021-12-10 14:15:00 2021-12-10 14:30:00 Sales Broker Visit Lab, Thierry Caldwell [facility] 1.2840.114 350.1.13.10 4.2.7.2.686 [id number] [facility] 2021-12-10 13:30:00 2021-12-10 13:42:14 Outpatient R TEQUILA CALDWELL [facility] [id number] [facility] 2021-12-10 13:30:00 2021-12-10 13:42:14 Office Visit Christi [facility] 1.840.114 350.1.13.10 4.2.7.2.686 [id number] [facility] 2021-10-02 00:00:00 2021-10-02 00:00:00 OFFICE VISIT EST PT LEVEL 3 STLMLC STLMLC [id number] [facility] 2021-07-12 00:00:00 2021-07-12 00:00:00 Telephone Giorgio [facility] 1.840.114 350.1.13.10 4.2.7.2.686 [id number] [facility] 2021-07-02 00:00:00 2021-07-02 00:00:00 OFFICE VISIT ESTAB PT LEVEL 4 STLMLC STLMLC [id number] [facility] 2021-06-29 11:03:47 2021-06-29 23:59:00 Outpatient R GIORGIO [facility] [id number] [facility] 2021-06-29 11:03:47 2021-06-29 23:59:00 Hospital Encounter [facility] .840.114 350.1.13.10 4.2.7.2.686 [id number] [facility] 2021-06-29 11:00:00 2021-06-29 11:02:00 [facility] [facility] 1.840.114 350.1.13.10 4.2.7.2.686 [id number] [facility] 2021-06-28 09:37:21 2021-06-28 23:59:00 Hospital Encounter [facility] 1.840.114 350.1.13.10 4.2.7.2.686 [id number] [facility] 2021-06-28 00:00:00 2021-06-28 00:00:00 [facility] [id number] [facility] 2021-06-17 00:00:00 2021-06-17 00:00:00 [facility] 1..840.114 350.1.13.10 4.2.7.2.686 [id number] [facility] 2021-06-04 15:00:00 2021-06-04 15:00:00 [facility] [id number] [facility] 2021-06-04 00:00:00 2021-06-04 00:00:00 Orders Only Doctor Unassigned, [place] [facility] 1..840.114 350.1.13.10 4.2.7.2.686 [id number] [facility] 2021-04-27 00:00:00 2021-04-27 00:00:00 OFFICE VISIT ESTAB PT LEVEL 1 STLMLC STLMLC [id number] [facility] 2021-04-26 00:00:00 2021-04-26 00:00:00 (TEL) STLMLC STLMLC [id number] [facility] 2021-04-03 00:00:00 2021-04-03 00:00:00 OFFICE VISIT ESTAB PT LEVEL 4 STLMLC STLMLC [id number] [facility] 2021-02-02 00:00:00 2021-02-02 00:00:00 Telephone Tomdeborah [facility] 1.114 350.1.13.10 4.2.7.2.686 [id number] [facility] 2021-01-29 11:45:00 2021-01-29 11:45:00 Outpatient R GIORGIO [facility] [id number] [facility] 2021-01-29 11:21:18 2021-01-29 11:36:18 Sales Broker Visit Lab, [facility] 1.840.114 350.1.13.10 4.2.7.2.686 [id number] [facility] 2021-01-29 10:30:10 2021-01-29 11:00:10 Office Visit Giorgio [facility] 1.84.114 350.1.13.10 4.2.7.2.686 [id number] [facility] 2021-01-29 11:00:00 2021-01-29 11:00:00 [facility] [id number] [facility] 2021-01-01 00:00:00 2021-01-01 00:00:00 OFFICE VISIT ESTAB PT LEVEL 4 STLMLC STLMLC [id number] [facility] 2020-11-21 00:00:00 2020-11-21 00:00:00 Orders Only Doctor Unassigned, Hensley [facility] 1.84.114 350.1.13.10 4.2.7.2.686 [id number] [facility] 2020-10-17 00:00:00 2020-10-17 00:00:00 (TEL) STLMLC STLMLC [id number] [facility] 2020-10-06 00:00:00 2020-10-06 00:00:00 (TEL) STLMLC STLMLC [id number] [facility] 2020-10-03 00:00:00 2020-10-03 00:00:00 OFFICE VISIT ESTAB PT LEVEL 4 STLMLC STLMLC [id number] [facility] 2020-07-19 11:00:00 2020-07-19 11:00:00 Outpatient [facility] [id number] [facility] 2020-07-03 00:00:00 2020-07-03 00:00:00 Outpatient STLMLC STLMLC [id number] [facility] 2020-06-29 00:00:00 2020-06-29 00:00:00 Outpatient STLMLC STLMLC [id number] [facility] 2020-03-27 16:20:00 2020-03-27 16:20:00 Outpatient SUDHEER ACOSTA [facility] [id number] [facility] 2019-12-15 00:00:00 2019-12-15 00:00:00 Outpatient STLMLC STLMLC [id number] [facility] 2019-12-13 09:00:00 2019-12-13 09:00:00 [facility]patient [facility] [id number] [facility] 2019-08-17 10:00:00 2019-08-17 10:00:[address] [facility] [address] [facility] [id number] [facility] 2019-07-08 11:45:00 2019-07-08 11:45:00 Outpatient [facility] [id number] [facility] 2019-05-27 10:09:50 2019-05-27 15:53:10 Office Visit Bin Aguero [facility] 1.2.840.114 350.1.13.10 4.2.7.2.686 [id number] [facility] 2019-05-27 10:30:00 2019-05-27 10:30:00 Outpatient R BIN AGUERO [facility] [id number] [facility] 2019-04-15 10:25:42 2019-04-15 11:15:23 Office Visit Bin Aguero [facility] 1.2.840.114 350.1.13.10 4.2.7.2.686 [id number] [facility] 2019-04-13 08:45:00 2019-04-13 08:45:00 Outpatient [facility] [id number] [facility] Results Test Description Test Time Test Comments Results Result Co mments Source HEMOGLOBIN [id number] 00:00:00* Test Item Value Reference Range Interpretation Comme nts HEMOGLOBIN A1c (test code = 4548-4) 6.7 % See_Comment H [Automated [place] ge] The system which generated this result transmitted reference range: 4.2-5.6 %. The reference range was not used to interpret this result as normal/abnormal. COMPREHENSIVE METABOLIC [id number] 00:00:00* Test Item Value Reference Range Interpretation Comme nts ALBUMIN (test code = 1751-7) 4.0 G/DL See_Comment [Automated messa ge] The system which generated this result transmitted reference range: 3.5-5.2 G/DL. The reference range was not used to interpret this result as normal/abnormal. ALKALINE PHOSPHATASE (test code = 6768-6) 89 U/L See_Comment [Automated message] The system which generated this result transmitted reference range: 40-140 U/L. The reference range was not used to interpret this result as normal/abnormal. BILIRUBIN, TOTAL (test code = 1975-2) 0.6 MG/DL See_Comment [Automated message] The system which generated this result transmitted reference range: <=1.2 MG/DL. The reference range was not used to interpret this result as normal/abnormal. BUN (test code = 3094-0) 12 MG/DL See_Comment [Automated messa ge] The system which generated this result transmitted reference range: 8-23 MG/DL. The reference range was not used to interpret this result as normal/abnormal. CALCIUM (test code = 37141-7) 9.6 MG/DL See_Comment [Automated messa ge] The system which generated this result transmitted reference range: 8.5-10.5 MG/DL. The reference range was not used to interpret this result as normal/abnormal. CALC A/G RATIO (test code = 1759-0) 1.4 RATIO See_Comment [Automated messa ge] The system which generated this result transmitted reference range: 1.0-2.6 RATIO. The reference range was not used to interpret this result as normal/abnormal. CALC BUN/CREAT (test code = 3097-3) 13 RATIO See_Comment [Automated messa ge] The system which generated this result transmitted reference range: 6-28 RATIO. The reference range was not used to interpret this result as normal/abnormal. CALC GLOBULIN (test code = 95268-8) 2.8 G/DL See_Comment [Automated messa ge] The system which generated this result transmitted reference range: 1.9-3.7 G/DL. The reference range was not used to interpret this result as normal/abnormal. CARBON DIOXIDE (test code = 1963-8) 27 MEQ/L See_Comment [Automated messa ge] The system which generated this result transmitted reference range: 19-31 MEQ/L. The reference range was not used to interpret this result as normal/abnormal. CHLORIDE (test code = 2075-0) 107 MEQ/L See_Comment [Automated messa ge] The system which generated this result transmitted reference range: 95-107 MEQ/L. The reference range was not used to interpret this result as normal/abnormal. CREATININE (test code = 2160-0) 0.92 MG/DL See_Comment [Automated messa ge] The system which generated this result transmitted reference range: 0.60-1.30 MG/DL. The reference range was not used to interpret this result as normal/abnormal. eGFR (2020 CKD-EPI) (test code = 06279-7) 71 ML/MIN/1.73 See_Comment [Automated messa ge] The system which generated this result transmitted reference range: >60 ML/MIN/1.73. The reference range was not used to interpret this result as normal/abnormal. GLUCOSE (test code = 1558-6) 134 MG/DL See_Comment H [Automated messa ge] The system which generated this result transmitted reference range: 70-99 MG/DL. The reference range was not used to interpret this result as normal/abnormal. POTASSIUM (test code = 2823-3) 4.7 MEQ/L See_Comment [Automated messa ge] The system which generated this result transmitted reference range: 3.5-5.4 MEQ/L. The reference range was not used to interpret this result as normal/abnormal. PROTEIN, TOTAL (test code = 2885-2) 6.8 G/DL See_Comment [Automated messa ge] The system which generated this result transmitted reference range: 6.1-8.3 G/DL. The reference range was not used to interpret this result as normal/abnormal. AST (test code = 1920-8) 17 U/L See_Comment [Automated messa ge] The system which generated this result transmitted reference range: 9-40 U/L. The reference range was not used to interpret this result as normal/abnormal. ALT (test code = 1742-6) 23 U/L See_Comment [Automated messa ge] The system which generated this result transmitted reference range: 5-40 U/L. The reference range was not used to interpret this result as normal/abnormal. SODIUM (test code = 2951-2) 147 MEQ/L See_Comment H [Automated messa ge] The system which generated this result transmitted reference range: 133-146 MEQ/L. The reference range was not used to interpret this result as normal/abnormal. HEMOGLOBIN [id number] 00:00:00* Test Item Value Reference Range Interpretation Comme nts A1C (test code = 4548-4) 6.9 HEMOGLOBIN [id number] 00:00:00* Test Item Value Reference Range Interpretation Comme nts A1C (test code = 4548-4) 6.4 HEMOGLOBIN A1C* Test Item Value Reference Range Interpretation Comme nts A1C (test code = 4548-4) 8.2 Notes Date/Time Note Provider Source 2022-12-13 10:34:33 lZQadyhx+de4PhyR3GRK vvN3lFNgokwXZvgP+yk0Jz 7KEsNMxXAqeUSfOXArQ/+23943-06-64F37:34:33F ormatting of this note might be different from the original.NOV: 01/27/23LOV: 07/01/22Refill sent 17118-9Trvpzyvkp encounter FlldBY0619-51-02K69:35:16Telephone encounter [id number] 9|[id number] for patient feuj54333-5WdymVTDLHHPHOV[address] Gy[id number] ULMUIHCVCXYIUQIS4843-40-10C97:35:161.2.840 .771954.1.72.3.15|1.2.840.574278.1.13.104. [id number] [facility]"
[2023-08-25] MEDS ORDERED: KETOROLAC 30 MG/ML INJ ONE (21:59)
[2023-08-25 22:36] LABS: SARS-CoV-2 Antigen CONTROL BLUE LINE VIS/BG OK; SARS-CoV-2 Antigen Rapid Res Negative (Negative)
--- NOTE | 2023-08-25 22:49 | EDPHYS ---
Physician Documentation [facility] Name: Mariela Carmona Age: 63 yrs Sex: Female : 1960 Arrival Date: 08/25/2023 Time: 21:23 Bed 5 Private MD: ED Physician Lauro Glass HPI: 08/24 21:48 This 63 yrs old Black Female presents to ER via Ambulatory with complaints of Headache, sb4 Sore Throat. 21:49 headache and sore throat x 3 days. denies any other associated signs and symptoms. no sb4 reported sick contacts. has not taken any OTC medications. Historical: - Allergies: 21:35 NKA; jj7 - PMHx: 21:35 Diabetes - NIDDM; Hypertension; jj7 - PSHx: 21:35 None; jj7 - Immunization history:: Adult Immunizations up to date, Client reports receiving the 2nd dose of the Covid vaccine, Flu vaccine is not up to date. - Infectious Disease History:: Denies. - Social history:: Smoking status: Patient reports the use of cigarette tobacco products, smokes one-half pack cigarettes per day, Patient/guardian denies using alcohol, street drugs, IV drugs. ROS: 21:49 Constitutional: Negative for fever, chills, and weight loss, sb4 21:49 ENT: Positive for sore throat, 21:49 Neuro: Positive for headache, 21:49 All other systems are negative, Exam: 21:49 Head/Face: Normocephalic, atraumatic. Eyes: Extra-ocular motions intact. Periorbital sb4 areas with no swelling, redness, or edema. Cardiovascular: Regular rate and rhythm with a normal S1 and S2. Respiratory: Lungs have equal breath sounds bilaterally, clear to auscultation and percussion. No rales, rhonchi or wheezes noted. No increased work of breathing, no retractions or nasal flaring. Abdomen/GI: Soft, non-tender, no distension. Skin: Warm, dry with normal turgor. Normal color with no rashes, no lesions, and no evidence of cellulitis. 21:49 Constitutional: The patient appears in no acute distress, alert, awake, obese, 21:49 ENT: Posterior pharynx: Tonsils: bilaterally enlarged, with erythema, Vital Signs: 21:32 BP 171 / 85; Pulse 110; Resp 20; Temp 97.9; Pulse Ox 96% ; Weight 122.47 kg; Height 6 jj7 ft. 1 in. ; Pain 8/10; 22:57 BP 165 / 82; Pulse 80; Resp 18; Temp 98; Pulse Ox 96% ; Pain 3/10; bm8 21:32 Body Mass Index 35.62 (122.47 kg, 185.42 cm) jj7 21:32 Pain Scale: Adult jj7 22:57 Pain Scale: Adult bm8 [place] Score: 22:02 Eye Response: spontaneous(4). Motor Response: obeys commands(6). Verbal Response: bm8 oriented(5). Total: 15. MDM: 21:36 Patient medically screened. sb4 22:47 Data reviewed: vital signs, nurses notes, lab test result(s), and as a result, I will sb4 discharge patient. Counseling: I had a detailed discussion with the patient and/or guardian regarding the historical points, exam findings, and any diagnostic results supporting the discharge/admit diagnosis, lab results, to return to the emergency department if symptoms worsen or persist or if there are any questions or concerns that arise at home. 08/24 21:48 Order name: SARS RAPID; Complete Time: 22:37 sb4 08/24 21:48 Order name: Flu; Complete Time: 22:37 sb4 08/24 21:48 Order name: Strep; Complete Time: 22:37 sb4 Administered Medications: 22:02 Drug: Ketorolac IM 30 mg IM once Route: IM; Site: right deltoid; bm8 22:57 Follow up: Response: No adverse reaction bm8 22:50 Drug: penicillin G Benzathine IM 1.2 million units IM once Route: IM; Site: right bm8 vastus lateralis; 22:57 Follow up: Response: Medication administered at discharge. bm8 Disposition Summary: 08/25/23 22:48 Discharge Ordered Notes: Location: Home sb4 Problem: an ongoing problem sb4 Symptoms: have improved sb4 Condition: Stable sb4 Diagnosis - Streptococcal pharyngitis sb4 Followup: sb4 - With: Emergency Department - When: As needed - Reason: Trouble breathing, Worsening of condition Discharge Instructions: - Discharge Summary Sheet sb4 - Strep Throat, Adult, Qfhv-nd-Nftn sb4 Forms: - Patient Portal Instructions sb4 - Leadership Thank You Letter sb4 Addendum: 08/26/2023 23:44 I was immediately available for consultation during this patient's visit. I did not e c2 personally see the patient or discuss the patient with the ALTAGRACIA. . Signatures: Dispatcher [employer] Karo Kruse, RN RN jj7 Idalia Chavez, PAArash PAArash sb4 Lauro Glass MD MD ec2 Davis Gonzales RN RN bm8 Corrections: (The following items were deleted from the chart) 08/24 21:48 21:48 SARS-COV-2 Antigen Rapid+I.LAB.BRZ ordered. EDMS EDMS 21:48 21:48 Influenza Screen (A \T\ B)+BA.LAB.BRZ ordered. EDMS EDMS 21:48 21:48 Group A Streptococcus Rapid Sc+BA.LAB.BRZ ordered. EDMS EDMS
--- NOTE | 2023-08-25 22:49 | ER ---
Nurse's Notes [facility] Name: Mariela Carmona Age: 63 yrs Sex: Female : 1960 Arrival Date: 08/25/2023 Time: 21:23 Bed 5 Private MD: Diagnosis: Streptococcal pharyngitis Presentation: 08/24 21:32 Chief complaint: Patient states: SORE THROAT AMD HEADACHE X 3 DAYS. Coronavirus screen: jj7 At this time, the client does not indicate any symptoms associated with coronavirus-19. Ebola Screen: No symptoms or risks identified at this time. Initial Sepsis Screen: Does the patient meet any 2 criteria? HR > 90 bpm. Yes Does the patient have a suspected source of infection? No. Patient's initial sepsis screen is negative. Risk Assessment: Do you want to hurt yourself or someone else? Patient reports no desire to harm self or others. Onset of symptoms was August 22, 2023. 21:32 Method Of Arrival: Ambulatory [facility] 21:32 Acuity: RIA 4 jj7 Triage Assessment: 21:35 Headache History: Denies prior headaches. General: Appears in no apparent distress. jj7 comfortable, Behavior is calm, cooperative, appropriate for age. Pain: Complains of pain in back of head Pain currently is 8 out of 10 on a pain scale. Pain began 3 hours ago. Also complains of no other associated symptoms. Neuro: Level of Consciousness is awake, alert, obeys commands, Oriented to person, place, time, situation, Appropriate for age Reports headache occipital area. Historical: - Allergies: 21:35 NKA; jj7 - PMHx: 21:35 Diabetes - NIDDM; Hypertension; jj7 - PSHx: 21:35 None; jj7 - Immunization history:: Adult Immunizations up to date, Client reports receiving the 2nd dose of the Covid vaccine, Flu vaccine is not up to date. - Infectious Disease History:: Denies. - Social history:: Smoking status: Patient reports the use of cigarette tobacco products, smokes one-half pack cigarettes per day, Patient/guardian denies using alcohol, street drugs, IV drugs. Screenin:[facility] Fall Risk Assessment (Adult) History of falling in the last 3 months, jj7 including since admission No falls in past 3 months (0 pts) Confusion or Disorientation No (0 pts) Intoxicated or Sedated No (0 pts) Impaired Gait No (0 pts) Mobility Assist Device Used No (0 pt) Altered Elimination No (0 pt) Score/Fall Risk Level 0 - 2 = Low Risk Oriented to surroundings, Maintained a safe environment, Educated pt \T\ family on fall prevention, incl call for assistance when getting out of bed. Abuse screen: Denies threats or abuse. Nutritional screening: No deficits noted. Tuberculosis screening: No symptoms or risk factors identified. Assessment: 22:02 Pain: Complains of pain in back of head, throat Pain does not radiate. Pain currently bm8 is 6 out of 10 on a pain scale. Quality of pain is described as sharp. EENT: Throat is reddened has enlarged tonsils on right on left with gag reflex present. 22:57 Reassessment: Patient appears in no apparent distress at this time. Patient and/or bm8 family updated on plan of care and expected duration. Pain level reassessed. Patient is alert, oriented x 3, equal unlabored respirations, skin warm/dry/pink. Patient states feeling better. Vital Signs: 21:32 BP 171 / 85; Pulse 110; Resp 20; Temp 97.9; Pulse Ox 96% ; Weight 122.47 kg; Height 6 jj7 ft. 1 in. ; Pain 8/10; 22:57 BP 165 / 82; Pulse 80; Resp 18; Temp 98; Pulse Ox 96% ; Pain 3/10; bm8 21:32 Body Mass Index 35.62 (122.47 kg, 185.42 cm) jj7 21:32 Pain Scale: Adult jj7 22:57 Pain Scale: Adult bm8 [place] Coma Score: 22:02 Eye Response: spontaneous(4). Motor Response: obeys commands(6). Verbal Response: bm8 oriented(5). Total: 15. ED Course: 21:25 Patient arrived in ED. ec2 21:29 Idalia Chavez PA-C is PHCP. sb4 21:29 Lauro Glass MD is Attending Physician. sb4 21:35 Triage completed. jj7 21:35 Arm band placed on left wrist. jj7 21:38 Patient has correct armband on for positive identification. jj7 21:39 Davis Gonzales, RN is Primary Nurse. bm8 22:02 Client placed on continuous cardiac and pulse oximetry monitoring. NIBP monitoring bm8 applied. Pulse ox on. NIBP on. Door closed. Noise minimized. Verbal reassurance given. 22:02 No provider procedures requiring assistance completed. bm8 22:57 Provided Education on: post er care. bm8 22:57 Patient did not have IV access during this emergency room visit. bm8 Administered Medications: 22:02 Drug: Ketorolac IM 30 mg IM once Route: IM; Site: right deltoid; bm8 22:57 Follow up: Response: No adverse reaction bm8 22:50 Drug: penicillin G Benzathine IM 1.2 million units IM once Route: IM; Site: right bm8 vastus lateralis; 22:57 Follow up: Response: Medication administered at discharge. bm8 Medication: 21:38 VIS not applicable for this client. jj7 Outcome: 22:48 Discharge ordered by . sb4 22:57 Discharged to home ambulatory, with family, bm8 22:57 Condition: stable 22:57 Discharge instructions given to patient, family, Instructed on discharge instructions, follow up and referral plans. no driving heavy equipment, medication usage, safety practices, Demonstrated understanding of instructions, follow-up care, medications, 22:59 Patient left the ED. bm8 Signatures: Karo Hernandez RN RN stevenjIdalia Rodriguez, PA-C PA-C [email or web address] Lauro Glass MD MD ec2 Davis Gonzales, RN RN bm8
[2023-08-25] MEDS ORDERED: PEN G BENZ LA 1.2MU/2ML SYRINGE IM ONE (22:50)
[2023-08-25 23:28] VITALS: BP 165/82; TEMP 98; O2SAT 96
== END 2023-08-25 22:59 | disposition home or self-care (01) ==
LOC: ER 21:23
DX: J02.0 Streptococcal pharyngitis (principal); Z11.52 Encounter for screening for COVID-19; F17.210 Nicotine dependence, cigarettes, uncomplicated
CPT/HCPCS: 36415; 87081; 87804; 87811; 96372; 99284; J0561